=== PATIENT | male | born 1950 | race Two or more races ===

== ENCOUNTER 2025-06-09 15:53 | Emergency (ER) | payer MEDICAID, SELFPAY ==
[2025-06-09 16:06] VITALS: BP 119/73; PULSE 91; RESP 16; TEMP 36.8; O2SAT 95; BMI 28.0
--- NOTE | 2025-06-09 16:13 | XR_ITS ---
Examination: PA lateral chest 2 views FINDINGS: Upright PA and lateral chest 2 views Date and time: June 09, 2025, 1639 hours INDICATIONS: Shortness of breath dizziness weakness beginning one month ago. FINDINGS: Dense consolidation versus pulmonary mass in the right upper lobe, 4.3 cm, which may be cavitary Minor prominence left ventricle. No pulmonary edema. The osseous structures are intact IMPRESSION: Prominent parenchymal disease in the right upper lobe which may be cavitary Consider CT chest without intravenous contrast follow-up
--- NOTE | 2025-06-09 16:13 | EKG_ITS ---
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
--- NOTE | 2025-06-09 16:14 | PD.EDRME ---
Rapid Medical Screening Exam E Arrival date/time: 06/09/25 15:53 75-year-old male with a history of hypertension, hyperlipidemia presents to the emergency room with a chief complaint of shortness of breath, dizziness, weakness x 1 month. Patient states he was recently admitted in [place] for shortness of breath and was on oxygen. I have greeted and performed a focused initial assessment of this patient. A comprehensive ED assessment and evaluation of the patient, analysis of all test results, and completion of the medical decision making process will be conducted by additional ED providers. Chief Complaint: Dizziness Time Seen by Provider: 06/09/25 16:03 Vital signs: Vital Signs Temperature 98.2 F 06/09/25 16:06 Pulse Rate 91 06/09/25 16:06 Respiratory Rate 16 06/09/25 16:06 Blood Pressure 119/73 06/09/25 16:06 Pulse Oximetry (%) 95 06/09/25 16:06 Vital signs reviewed by provider: Yes
[2025-06-09 17:13] LABS: Basophils # (Auto) 0.0 Thou/mm3 (0.0-0.2); Basophils % (Auto) 0 % (0-2.5); Eosinophils # (Auto) 0.0 Thou/mm3 (0.0-0.5); Eosinophils % (Auto) 1 % (0-10); Hematocrit 35.0 % (41.0-53.0); Hemoglobin 12.0 g/dL (13.5-16.0); Immature Granulocytes Auto 0.20 Thou/mm3 (0.00-0.00); Lymphocytes # (Auto) 1.9 Thou/mm3 (1.0-4.8); Lymphocytes % (Auto) 33 % (10-50); Mean Corpuscular HGB Conc 34.3 g/dl (31.0-37.0); Mean Corpuscular Hemoglobin 32.7 pg (25.0-35.0); Mean Corpuscular Volume 95 fL (80-100); Monocytes # (Auto) 1.4 Thou/mm3 (0.0-0.8); Monocytes % (Auto) 25 % (0-12); Neutrophils # (Auto) 2.2 Thou/mm3 (1.8-7.7); Neutrophils % (Auto) 38 % (37-80); Nucleated Red Blood Cell # 0.02 Thou/mm3 (0.00-0.00); Nucleated Red Blood Cell % 0 /100 WBC (0); Platelet Count 213 Thou/mm3 (140-440); RDW Standard Deviation 59.5 fL (35.1-43.9); Red Blood Count 3.67 Miln/mm3 (4.50-5.90); White Blood Count 5.7 Thou/mm3 (3.8-10.6)
[2025-06-09 17:37] LABS: B-Type Natriuretic Peptide 60 pg/mL (0-100)
[2025-06-09 17:39] LABS: Alanine Aminotransferase 23 U/L (10-49); Albumin, Serum 4.3 gm/dL (3.4-4.8); Albumin/Globulin Ratio 1.8 (1.2-2.2); Alkaline Phosphatase 146 U/L (46-116); Anion Gap 13 (7-16); Aspartate Amino Transferase 20 U/L (0-34); BUN/Creatinine Ratio 8 Ratio (12-20); Bilirubin,Total 0.6 mg/dL (0.3-1.2); Blood Urea Nitrogen 9 mg/dL (9-23); Calcium 8.3 mg/dL (8.3-10.6); Calcium (Corrected) 8.3 mg/dL (8.5-10.1); Carbon Dioxide 27.5 mMol/L (20.0-31.0); Chloride 105 mMol/L (98-107); Creatinine (Component) 1.1 mg/dL (0.6-1.3); Estimated Creatinine Clearance 61.6 mL/min (>60); Globulin 2.4 gm/dL (2.3-3.5); Glucose 80 mg/dL (74-106); Osmolality,Calculated 286 (275-295); Potassium 4.4 mMol/L (3.4-5.1); Sodium 145 mMol/L (136-145); Total Protein 6.7 gm/dL (5.7-8.2); Troponin I < 0.020 ng/mL (0.0-0.045); eGFR > 60 See Note
[2025-06-09 17:52] LABS: INR 1.4 (0.9-1.3); Partial Thromboplastin Time 42.4 Seconds (22.0-36.0); Prothrombin Time 14.7 Seconds (9.0-12.2)
[2025-06-09 17:53] LABS: Collection Type, Urine Clean Catch; Squamous Epithelial Cell,Urine 0 /hpf (0-5)
[2025-06-09 18:00] LABS: Bilirubin,Urine Negative (Negative); Blood,Urine Negative (Negative); Clarity,Urine Clear (Clear/Hazy); Color,Urine Lt-Yellow (Lt Yel-Yel); Glucose, Urine Negative (Negative); Ketones,Urine Negative (Negative); Leukocyte Esterase,Urine Negative (Negative); Nitrite,Urine Negative (Negative); PH,Urine 6.5 (5.0-7.0); Protein,Urine Negative (Neg - Trace); RBC,Urine 1 /hpf (0-3); Specific Gravity,Urine 1.009 (1.001-1.035); Urobilinogen,Urine Negative mg/dL (0.0-1.0); WBC,Urine < 1 /hpf (0-5)
--- NOTE | 2025-06-09 19:08 | XR_ITS ---
Examination: CT thoracic spine, without contrast. 2-D sagittal reconstructions. 2-D coronal reconstructions. 3-D reconstructions. Date and time of exam:Indications: Onset of back pain today CTDI: vol (mGy):41.4 DLP: (mGycm):1539. Technique: Multiple 1.25 mm axial sections of the thoracic spine without intravenous contrast have been obtained. 2-D sagittal and coronal reconstructions have been obtained. 3-D reconstructions have been obtained. Low dose protocols were performed. One or more of the following dose reduction techniques were used; automated exposure control, adjustment of the mA and/or KV according to patient size, use of iterative reconstruction technique. Findings: Mild acute fracture T12 vertebral body, sagittal image 46, axial image 175 Reduction in height less than 10% Satisfactory alignment of this vertebral body [id number] diffuse thoracic disc narrowing IMPRESSION: Mild acute fracture T12 vertebral body with satisfactory alignment
--- NOTE | 2025-06-09 19:08 | XR_ITS ---
Examination: Abdomen sonogram, Limited Date and time of exam: June 09, 2025 1935 hours INDICATIONS: Right upper abdomen tenderness today Technique: Real-time limon scale transabdominal sonographic images of the upper abdomen obtained. Findings: 5 mm gallbladder polyp Negative for cholelithiasis, negative for cholecystitis Common bile duct 0.4 cm Pancreatic head 2.9 cm Liver 13.4 cm no focal liver lesions Normal hepatopedal portal venous flow Patent IVC IMPRESSION: 5 mm gallbladder polyp Normal common bile duct
--- NOTE | 2025-06-09 19:08 | XR_ITS ---
Examination: CT brain head without contrast. 2-D sagittal coronal reconstructions Date and time of exam:June 09, 2025, 1923 hours INDICATIONS: Dizziness headache today CTDI: vol (mGy):55.2 DLP: (mGycm):1087 Technique: Multiple CT axial sections of the brain have been obtained, 5 mm slice thickness. Contrast has not been administered. 2-D sagittal, coronal reconstructions have been obtained Low dose protocols were performed. One or more of the following dose reduction techniques were used; automated exposure control, adjustment of the mA and/or KV according to patient size, use of iterative reconstruction technique. Findings: No significant ventricular enlargement. Intra-axial or extra-axial hemorrhage density is not seen. No mass effect or midline shift Basal cisterns are not remarkable. Fourth ventricle is midline. Cranial vault intact. Impression: Negative for acute hemorrhage, mass effect or midline shift Advise clinical correlation and follow up accordingly
--- NOTE | 2025-06-09 19:08 | XR_ITS ---
Examination: CT chest, without intravenous contrast. CT abdomen, without intravenous contrast. CT pelvis, without intravenous contrast. 2-D sagittal and coronal reconstructions. 3-D reconstructions. Date and time of exam:June 09, 2025 1930 hours INDICATIONS: Generalized abdominal and chest pain shortness of breath one month CTDI vol (mgy) 11.5 DLP (MGycm)8 Technique: Multiple CT images, 3.0 mm slice thickness, obtained chest, abdomen, pelvis, with the high-resolution 64 slice scanner.. Sagittal and coronal 2-D reconstructions are obtained. 3-D reconstructions Low dose protocols were performed. One or more of the following dose reduction techniques were used; automated exposure control, adjustment of the mA and/or KV according to patient size, use of iterative reconstruction technique. Findings: No thoracic aortic aneurysmal dilatation Pulmonary artery segments are not enlarged Partially cavitary pulmonary mass with spiculated margins in the right upper lobe, 4.1 x 4.2 cm 2 mm pulmonary nodule left upper lobe 14 mm pulmonary nodule left lower lobe No pulmonary edema No focal liver or splenic lesions No gallstones No pancreatic mass No hydronephrosis Aorta intact No pericecal inflammatory change Urinary bladder are intact Fat-containing inguinal hernias Prominent osteopenia Please see the CT lumbar thoracic spine studies indicating mild fracture L1 and T12 vertebral bodies with satisfactory alignment IMPRESSION: Partially cavitary pulmonary mass with spiculated margins of the right upper lobe, 4.1 x 4.2 cm, I has on the differential list his lung carcinoma Additional pulmonary nodules as above No pulmonary edema or pneumonia No acute process in the abdomen or pelvis Please see the CT lumbar spine thoracic spine reports
--- NOTE | 2025-06-09 19:08 | XR_ITS ---
Examination: CT lumbar spine, without contrast. 2-D sagittal reconstructions. 2-D coronal reconstructions. 3-D reconstructions. Date and time of exam:June 09, 2025 1927 hours INDICATIONS: Onset severe lower back pain today radiating to legs CTDI: vol (mGy):39.9 DLP: (mGycm):1532 Technique: Multiple 1.25 mm axial sections of the lumbar spine without intravenous contrast have been obtained. 2-D sagittal and coronal reconstructions have been obtained. 3-D reconstructions have been obtained. Low dose protocols were performed. One or more of the following dose reduction techniques were used; automated exposure control, adjustment of the mA and/or KV according to patient size, use of iterative reconstruction technique. Findings: Satisfactory alignment lumbar vertebral bodies Mild acute fracture L1 vertebral body, depression superior endplate, sagittal image 53, axial image 50 No retropulsion of this vertebral body Advanced degenerative disc disease L4-5, L5-S1 No spondylolisthesis IMPRESSION: Mild acute fracture L1 vertebral body with satisfactory alignment Advanced degenerative disc disease L4-L5, L5-S1
--- NOTE | 2025-06-09 19:14 | PD.EDDIZZY ---
ED Dizzyness RME/HPI General Chief Complaint: Dizziness Stated Complaint: low blood pressure, dizziness Time Seen by Provider: 06/09/25 16:03 Arrival date/time: 06/09/25 15:53 RME / HPI RME / HPI Narrative: 06/09/25 15:53 75-year-old male with a history of hypertension, hyperlipidemia presents to the emergency room with a chief complaint of shortness of breath, dizziness, weakness x 1 month. Patient states he was recently admitted in [place] for shortness of breath and was on oxygen. I have greeted and performed a focused initial assessment of this patient. A comprehensive ED assessment and evaluation of the patient, analysis of all test results, and completion of the medical decision making process will be conducted by additional ED providers. This section includes all my notes and documentations, including HPI, PE, and ED course. Tomy Woods MD HPI: 75 y/o male with Hx of HTN presents with dizziness, generalized weakness, headache, nausea, possible subjective fever fever, back pain, and sweats x several weeks. Denies vomiting, abdominal and chest pain. No other complaints. ROS: All negative except as documented in HPI. Physical Exam: General: Alert and oriented. No acute distress when remaining still. Eyes: Conjunctivae and lids clear. ENT: No nasal congestion. Neck: Supple. Heart: RRR. Lungs: No respiratory distress. Good air movement. No rhonchi, wheezing, rales. Abdomen: Soft and nontender. Normal bowel sounds. No distension. No rebound or guarding. Back: No CVA tenderness. Skin: Warm and dry. Neuro: Alert and oriented X 3. Cranial nerves II to XII grossly normal. No peripheral motor deficits. I reviewed all diagnostic test results: My review of the Head/Brain CT report is: NAD. My review of the Chest/Abdomen/Pelvis CT report is: Partially cavitary pulmonary mass 4.1 x 4.2 cm. My review of the L-Spine CT report is: Mild acute fracture L1 vertebral body with satisfactory alignment. Advanced degenerative disc disease L4-L5, L5-S1. My review of the T-Spine CT report is: Mild acute fracture T12 vertebral body with satisfactory alignment. My review of the Gall Bladder US report is: 5 mm gallbladder polyp. Normal common bile duct. Blood tests and urine tests unremarkable except Mg 1.3. Covid/Influenza: Negative. At this point, diagnoses include: Hypomagnesia, L1 vertebral fracture, T2 vertebral fracture, Lumbar degenerative disc disease, Mass of upper lobe of right lung. Treatment here included: Magnesium oxide 400 mg and acetaminophen w/ Codeine 300-30. Recommended outpatient management. Based on my best medical judgment, made decision no further evaluation or treatment indicated at this time. Patient understands and agrees to the discharge instructions customized and printed, see below. Discharge Instructions from Dr. Woods printed for you: 1. After extensive evaluation, your main diagnosis is right lung mass. It may be cancer. We will not know without further investigation. 2. Other diagnoses include mild lumbar fracture (L1) and thoracic fracture (T2) and degenerative disc disease. See attached handouts. They may be causing back pain. 3. Your magnesium level is dangerously low. Take magnesium pills as prescribed. Increase food rich in magnesium. Such as green and leafy vegetables and peanuts and almonds and cashews. 4. Most importantly, see a private doctor outside the ER on 06/12/2025 for recheck and further care. Ask to review all test results and official radiology reports, to make sure you receive all necessary follow-ups and monitoring, including the repeat magnesium level. Ask for help investigating your right upper lung mass. You will need more care not available in the ER. Such as referrals to specialists. 5. Seek immediate medical care with worsening or with any concerns. Tomy Woods MD Related Data Home Medications ?Medication ?Instructions ?Recorded ?Confirmed allopurinol 300 mg tablet 300 mg PO QDAY 05/15/23 05/15/23 aspirin 81 mg capsule 81 mg PO QDAY 05/15/23 05/18/23 celecoxib 200 mg capsule 200 mg PO QDAY 05/15/23 05/15/23 fluoxetine 10 mg tablet 10 mg PO QDAY 05/15/23 05/15/23 gabapentin 300 mg capsule 300 mg PO BID 05/15/23 05/15/23 hydrochlorothiazide 25 mg tablet 25 mg PO BID 05/15/23 05/15/23 loratadine 10 mg capsule 10 mg PO QDAY 05/15/23 05/15/23 losartan 50 mg tablet 50 mg PO BID 05/15/23 05/18/23 omeprazole 20 mg capsule,delayed 20 mg PO QDAY 05/15/23 05/15/23 release pravastatin 10 mg tablet 10 mg PO QDAY 05/15/23 05/15/23 Previous Rx's ?Medication ?Instructions ?Recorded acetaminophen 300 mg-codeine 30 mg 2 tab PO Q8H PRN pain #20 tabs 06/09/25 tablet magnesium oxide 400 mg PO BID #60 tabs 06/09/25 Allergies Allergy/AdvReac Type Severity Reaction Status Date / Time No Known Allergies Allergy Verified 05/18/23 10:29 Review of Systems Review of Systems Systems Reviewed: All systems reviewed, normal except as documented Past Medical History Past Medical History CARDIAC: Positive Cardiac Disorders, Hypercholesterolemia and Hypertension GASTROINTESTINAL: Positive Gastrointestinal Disorders, Hemorrhoids and Obesity GENITOURINARY: Positive Genitourinary Disorders and Benign Prostatic Hyperplasia MUSCULOSKELETAL: Positive Musculoskeletal Disorders, Arthritis, Gout and Degenerative Joint Disease ENT: Positive Cataracts (sonal) PSYCHO/SOCIAL: Positive Depression Family History FAMILY HISTORY: Positive Family Surgery Surgical History SURGICAL: Positive Transurethral Resection (x3) Social History SMOKING STATUS: Former smoker ED Exam Narrative Physical exam: Refer to HPI Course Course Course Narrative: CXR is ordered for determining the etiology of shortness of breath. Quality Measures none Orders Category Date Time Status Bedside COVID-19 Antigen Test NOW Care 06/09/25 19:07 Completed Bedside Influenza A&B Antigen Test NOW Care 06/09/25 19:07 Completed EKG (ED ONLY) *Do not use* NOW Care 06/09/25 16:[address] chest abdomen pelvis wo Stat Exams 06/09/25 19:[address] head/brain wo con Stat Exams 06/09/25 19:[address] lumbar spine wo con Stat Exams 06/09/25 19:[address] thoracic spine wo con Stat Exams 06/09/25 19:08 Completed EKG (ED Only) Stat Exams 06/09/25 16:13 Draft US gall bladder Stat Exams 06/09/25 19:08 Completed XR chest 2V Stat Exams 06/09/25 16:13 Completed Amylase Stat Lab 06/09/25 19:53 Completed B-Type Natriuretic Peptide Stat Lab 06/09/25 16:48 Completed Beta Hydroxybutyrate Stat Lab 06/09/25 19:53 Completed Bilirubin,Direct Stat Lab 06/09/25 19:53 Completed CBC Stat Lab 06/09/25 16:48 Completed CRP [C-Reactive Protein] Stat Lab 06/09/25 19:53 Completed Cocci Serology IgM with reflex to IgG [Cocci Serology, Lab 06/09/25 16:48 Received Unk History] Stat Comprehensive Metabolic Panel Stat Lab 06/09/25 16:48 Completed Free T4 (Free Thyroxine) Stat Lab 06/09/25 19:53 Completed Lactate (Lactic Acid) Stat Lab 06/09/25 19:53 Completed Lipase Stat Lab 06/09/25 19:53 Completed Magnesium Stat Lab 06/09/25 19:53 Completed Partial Thromboplastin Time Stat Lab 06/09/25 16:48 Completed Procalcitonin Stat Lab 06/09/25 19:53 Completed Prothrombin Time with INR Stat Lab 06/09/25 16:48 Completed TSH [Thyroid Stimulating Hormone] Stat Lab 06/09/25 19:53 Completed Troponin I Stat Lab 06/09/25 16:48 Completed Urinalysis Stat Lab 06/09/25 17:46 Completed VBG [Venous Blood Gas] Stat Lab 06/09/25 19:53 Completed ACETAMINOPHEN w/COD 300-30 [Tylenol w/Cod #3] Med 06/09/25 22:59 Discontinued 2 tab PO X1 ONE Magnesium Oxide [Mag-Ox 400] Med 06/09/25 22:28 Discontinued 400 mg PO X1 ONE Magnesium Sulf 50% Inj (gm) Med 06/09/25 22:26 Discontinued 2 gm IM X1 ONE Vital Signs Vital signs: Vital Signs Temperature 98.2 F 06/09/25 16:06 Pulse Rate 91 06/09/25 16:06 Respiratory Rate 16 06/09/25 16:06 Blood Pressure 119/73 06/09/25 16:06 Pulse Oximetry (%) 95 06/09/25 16:06 Dizziness MDM Narrative MDM Narrative:: Scribe Attestation: Amy Lee, am scribing for and in the presence of Dr. Woods. Provider Notation: Although this document has been carefully reviewed, there may still be some phonetic and other typographical errors.? These errors are purely grammatical due to imperfections in the software program and should not be construed in any way to? compromise the substance of the patient's medical care during this visit. 75 y/o male with Hx of HTN presents with dizziness, generalized weakness, headache, nausea, possible subjective fever fever, back pain, and sweats x several weeks. Denies vomiting, abdominal and chest pain. No other complaints. Patient data External records reviewed:: [facility] previous records (No prior ED records available for review.) Clinical information provided by:: patient and family (Son) Social determinants that could affect healthcare access:: none Patient has the following chronic illnesses:: Hypercholesterolemia, Hypertension, Hemorrhoids, Obesity, Benign Prostatic Hyperplasia, Arthritis, Gout, Degenerative Joint Disease, Cataracts, Depression How is presenting disease/condition affected by chronic disease/condition?: exacerbated by Evaluation data The following diagnostics were reviewed and interpreted by me:: lab results, radiology exam(s) and EKG tracing(s) Lab and/or radiology exams considered but not ordered:: None Interpretation Summary: My review of the Head/Brain CT report is: NAD. My review of the Chest/Abdomen/Pelvis CT report is: Partially cavitary pulmonary mass 4.1 x 4.2 cm. My review of the L-Spine CT report is: Mild acute fracture L1 vertebral body with satisfactory alignment. Advanced degenerative disc disease L4-L5, L5-S1. My review of the T-Spine CT report is: Mild acute fracture T12 vertebral body with satisfactory alignment. My review of the Gall Bladder US report is: 5 mm gallbladder polyp. Normal common bile duct. Blood tests and urine tests unremarkable except Mg 1.3. Covid/Influenza: Negative. Medications / Prescriptions Medications or Prescriptions considered but not ordered:: None Medication administrations:: Medication Administration History Discontinued Medications Acetaminophen/Codeine Phosphate (Acetaminophen W/Cod 300-30 Tablet) 2 tab PO X1 ONE Stop: 06/09/25 23:00 Last Admin: 06/09/25 23:08 Dose: 2 tab Documented By: OA Magnesium Oxide (Magnesium Oxide 400 Mg Tablet) 400 mg PO X1 ONE Stop: 06/09/25 22:29 Last Admin: 06/09/25 23:08 Dose: 400 mg Documented By: OA Magnesium Sulfate (Magnesium Sulf Inj 0.5 Gm/Ml Vial 2 Ml) 2 gm IM X1 ONE Stop: 06/09/25 22:27 Last Admin: 06/09/25 23:10 Dose: Not Given Documented By: OA Non-Admin Reason: Discontinued Magnesium oxide 400 mg and Acetaminophen w/ Codeine 300-30. Consultations Consultation(s) initiated? (list below): No Diagnosis Dizziness Differential Diagnosis: adverse reaction to drug, benign paroxysmal positional vertigo, orthostatic hypotension, vertebral basilar insufficiency, cerebrovascular accident, acute vestibular neuronitis and transient cerebral ischemia Most likely diagnosis given after review of the tests above:: Hypomagnesia, L1 vertebral fracture, T2 vertebral fracture, Lumbar degenerative disc disease, Mass of upper lobe of right lung. Admission Indicated Admission indicated?: not indicated Explain why admission is indicated or not indicated:: With no condition needing emergent intervention, there was no indication for admission. Admission Request Was there a request for admission?: No Disposition Plan Disposition Plan: Discharge Discharge Attestation Discharge Attestation: The patient and all family members were given an opportunity to ask questions and understood the discharge instructions. Discharge instructions specifically effects, indications for sooner follow up or return to the emergency department, and the expected course of current diagnosis. Patient condition: Stable Discharge Plan Plan Patient Disposition: HOME (Self Care) Prescriptions/Referrals Prescriptions/Med Rec: New magnesium oxide 400 mg magnesium tablet 400 mg PO BID Qty: 60 3RF acetaminophen-codeine 300-30 mg tablet 2 tab PO Q8H MDD 6 PRN (Reason: pain) Qty: 20 0RF No Action losartan 50 mg Tablet 50 mg PO BID celecoxib 200 mg Capsule 200 mg PO QDAY pravastatin 10 mg Tablet 10 mg PO QDAY gabapentin 300 mg Capsule 300 mg PO BID omeprazole 20 mg Capsule,Delayed Release(Dr/Ec) 20 mg PO QDAY allopurinol 300 mg Tablet 300 mg PO QDAY hydrochlorothiazide 25 mg Tablet 25 mg PO BID loratadine 10 mg Capsule 10 mg PO QDAY aspirin 81 mg Capsule 81 mg PO QDAY fluoxetine 10 mg Tablet 10 mg PO QDAY Referrals: Pako Tirado MD [Primary Care Provider] - In 1 week Problem List Clinical Impression: Mass of upper lobe of right lung, T2 vertebral fracture, L1 vertebral fracture, Lumbar degenerative disc disease, Hypomagnesemia Patient/Caregiver Discharge Instructions Discharge Activity: activity as tolerated Education Materials: Magnesium (Blood), ED Fracture, Vertebral Compression, ED Degenerative Disk Disease, ED Tumor, Uncertain Cause Additional Instructions: Discharge Instructions from Dr. Woods printed for you: 1. After extensive evaluation, your main diagnosis is right lung mass. It may be cancer. We will not know without further investigation. 2. Other diagnoses include mild lumbar fracture (L1) and thoracic fracture (T2) and degenerative disc disease. See attached handouts. They may be causing back pain. 3. Your magnesium level is dangerously low. Take magnesium pills as prescribed. Increase food rich in magnesium. Such as green and leafy vegetables and peanuts and almonds and cashews. 4. Most importantly, see a private doctor outside the ER on 06/12/2025 for recheck and further care. Ask to review all test results and official radiology reports, to make sure you receive all necessary follow-ups and monitoring, including the repeat magnesium level. Ask for help investigating your right upper lung mass. You will need more care not available in the ER. Such as referrals to specialists. 5. Seek immediate medical care with worsening or with any concerns. Instrucciones de nusrat del Dr. Woods impresas para usted: 1. Tras jamie evaluaci?n exhaustiva, cox diagn?stico principal es jamie masa en el pulm?n derecho. Podr?a ser c?ncer. No lo sabremos sin m?s investigaci?n. 2. Otros diagn?sticos incluyen fractura lumbar leve (L1), fractura tor?cica (T2) y enfermedad degenerativa del disco. Consulte los folletos adjuntos. Podr?an estar causando dolor de espalda. 3. Cox nivel de magnesio es peligrosamente bajo. [place] las pastillas de magnesio seg?n lo prescrito. Aumente el consumo de alimentos ricos en magnesio, yunior verduras de hoja nithya, cacahuetes, almendras y anacardos. 4. Lo m?s importante es que consulte con un m?dico privado fuera de urgencias el 12/06/2025 para jamie nueva revisi?n y atenci?n adicional. Solicite la revisi?n de todos los resultados de las pruebas y los informes radiol?gicos oficiales para asegurarse de recibir todos los seguimientos y la monitorizaci?n necesarios, incluyendo la repetici?n del nivel de magnesio. Solicite ayuda para investigar cox masa en el pulm?n superior derecho. Necesitar? atenci?n adicional que no est? disponible en urgencias. Yunior derivaciones a especialistas. 5. Busque atenci?n m?dica inmediata si presenta empeoramiento o cualquier inquietud. Print Language: Sami Stand Alone Forms: Lisha Award Info., Patient Portal Info Letter
[2025-06-09 20:02] LABS: Lactate (Lactic Acid) 1.4 mMol/L (0.4-2.0)
[2025-06-09 20:03] LABS: Base Excess, Venous 3 (-3-3); Beta Hydroxybutyrate 0.1 mmol/L (<0.6); O2 Saturation, Venous 50 % (96-97); PCO2, Venous 44 mmHg (36-56); PO2, Venous 28 mmHg (15-58); pH, Venous 7.41 (7.33-7.66)
[2025-06-09 22:08] LABS: Bilirubin,Direct 0.2 mg/dL (0.0-0.3); Free T4 (Free Thyroxine) 1.14 ng/dL (0.89-1.76); Lipase 55 U/L (12-53); Magnesium 1.3 mg/dL (1.6-2.6); Procalcitonin 0.14 ng/ml (0.0-0.49); Thyroid Stimulating Hormone 5.01 uIU/mL (0.55-4.78)
[2025-06-09 22:21] LABS: Amylase 79 U/L (30-118); C-Reactive Protein 1.4 mg/dL (0.0-0.9)
[2025-06-09] MEDS: MAGNESIUM OXIDE 400 MG TABLET PO (23:08)
[2025-06-09] MEDS: ACETAMINOPHEN w/COD 300-30 TABLET 2 TAB PO (23:08)
[2025-06-09 23:13] VITALS: BP 122/78; PULSE 78
[2025-06-10 14:21] LABS: Cocci Serology, IgM Negative (Negative)
[2025-06-12 13:59] LABS: Cocci Serology, IgG Negative (Negative)
== END 2025-06-09 23:14 | disposition home or self-care (01) ==
PROVIDERS: Nurse Practitioner Family; Emergency Provider Emergency Medicine; PCP Family Medicine
DX: R91.8 Other nonspecific abnormal finding of lung field (principal); M51.369 Other intervertebral disc degeneration, lumbar region without mention of lumbar back pain or lower extremity pain; K82.4 Cholesterolosis of gallbladder; S22.029A Unspecified fracture of second thoracic vertebra, initial encounter for closed fracture; S22.089A Unspecified fracture of T11-T12 vertebra, initial encounter for closed fracture; X58.XXXA Exposure to other specified factors, initial encounter; S32.019A Unspecified fracture of first lumbar vertebra, initial encounter for closed fracture; E83.42 Hypomagnesemia
CPT/HCPCS: 36415; 70450; 71046; 71250; 72128; 72131; 74176; 76705; 80053; 81001; 82010; 82150; 82248; 82803; 83605; 83690; 83735; 83880; 84145; 84439; 84443; 84484; 85025; 85610; 85652; 85730; 86140; 86331; 86635; 93005; 99284; A9270

== ENCOUNTER → 2025-06-28 | Outpatient (CLI) | payer MEDICAID, SELFPAY ==
[2025-06-26 13:43] VITALS: BMI 27.4
[2025-06-27 11:48] LABS: Basophils # (Auto) 0.0 Thou/mm3 (0.0-0.2); Basophils % (Auto) 0 % (0-2.5); Eosinophils # (Auto) 0.1 Thou/mm3 (0.0-0.5); Eosinophils % (Auto) 1 % (0-10); Hematocrit 36.4 % (41.0-53.0); Hemoglobin 12.2 g/dL (13.5-16.0); Immature Granulocytes Auto 0.31 Thou/mm3 (0.00-0.00); Lymphocytes # (Auto) 1.6 Thou/mm3 (1.0-4.8); Lymphocytes % (Auto) 28 % (10-50); Mean Corpuscular HGB Conc 33.5 g/dl (31.0-37.0); Mean Corpuscular Hemoglobin 33.0 pg (25.0-35.0); Mean Corpuscular Volume 98 fL (80-100); Monocytes # (Auto) 1.2 Thou/mm3 (0.0-0.8); Monocytes % (Auto) 21 % (0-12); Neutrophils # (Auto) 2.5 Thou/mm3 (1.8-7.7); Neutrophils % (Auto) 44 % (37-80); Nucleated Red Blood Cell # 0.00 Thou/mm3 (0.00-0.00); Nucleated Red Blood Cell % 0 /100 WBC (0); Platelet Count 194 Thou/mm3 (140-440); RDW Standard Deviation 57.3 fL (35.1-43.9); Red Blood Count 3.70 Miln/mm3 (4.50-5.90); White Blood Count 5.7 Thou/mm3 (3.8-10.6)
[2025-06-27 11:55] LABS: INR 1.2 (0.9-1.3); Partial Thromboplastin Time 34.6 Seconds (22.0-36.0); Prothrombin Time 12.6 Seconds (9.0-12.2)
--- NOTE | 2025-06-28 09:34 | PC.NURSE ---
0923 patient taking xarelto at home, last dose yesterday 06/27/2025, Dr. Rubin called and made aware, procedure will be cancelled for today and scheduled for next week. Patient and family educated to stop xarelto for procedure. Both patient and family verbalize understanding.
== END | disposition home or self-care (01) ==
LOC: SIRX 09:08
PROVIDERS: Radiology Diagnostic Radiology; PCP Family Medicine; Referring Provider Nurse Practitioner Family; Visit Provider Nurse Practitioner Family
DX: Z53.8 Procedure and treatment not carried out for other reasons (principal); Z01.812 Encounter for preprocedural laboratory examination
CPT/HCPCS: 36415; 85025; 85610; 85730

== ENCOUNTER 2025-07-03 07:36 | Outpatient (CLI) | payer MEDICAID, SELFPAY ==
[2025-06-29 11:50] VITALS: BMI 25.3
[2025-06-30 14:27] LABS: Basophils # (Auto) 0.0 Thou/mm3 (0.0-0.2); Basophils % (Auto) 0 % (0-2.5); Eosinophils # (Auto) 0.1 Thou/mm3 (0.0-0.5); Eosinophils % (Auto) 1 % (0-10); Hematocrit 34.0 % (41.0-53.0); Hemoglobin 11.3 g/dL (13.5-16.0); Immature Granulocytes Auto 0.17 Thou/mm3 (0.00-0.00); Lymphocytes # (Auto) 1.6 Thou/mm3 (1.0-4.8); Lymphocytes % (Auto) 30 % (10-50); Mean Corpuscular HGB Conc 33.2 g/dl (31.0-37.0); Mean Corpuscular Hemoglobin 32.8 pg (25.0-35.0); Mean Corpuscular Volume 99 fL (80-100); Monocytes # (Auto) 1.2 Thou/mm3 (0.0-0.8); Monocytes % (Auto) 24 % (0-12); Neutrophils # (Auto) 2.2 Thou/mm3 (1.8-7.7); Neutrophils % (Auto) 41 % (37-80); Nucleated Red Blood Cell # 0.00 Thou/mm3 (0.00-0.00); Nucleated Red Blood Cell % 0 /100 WBC (0); Platelet Count 185 Thou/mm3 (140-440); RDW Standard Deviation 56.8 fL (35.1-43.9); Red Blood Count 3.45 Miln/mm3 (4.50-5.90); White Blood Count 5.2 Thou/mm3 (3.8-10.6)
[2025-06-30 14:52] LABS: INR 1.1 (0.9-1.3); Partial Thromboplastin Time 28.9 Seconds (22.0-36.0); Prothrombin Time 11.7 Seconds (9.0-12.2)
[2025-07-03] VITALS (9 sets, daily range): BP systolic 113–142; BP diastolic 67–83; PULSE 67–82; RESP 15–23; TEMP 36.7–36.8; O2SAT 94–98
--- NOTE | 2025-07-03 08:30 | XR_ITS ---
Examination: CT-guided percutaneous biopsy pulmonary mass right upper lobe CT chest without intravenous contrast Date and time of procedure: July 03, 2025 0909 hours INDICATIONS: Chest pain June 09, 2025 spiculated cavitary pulmonary mass right upper lobe 4.1 x 4.2 cm Informed consent provided. A timeout was completed verifying correct patient, procedure, site and positioning. Technique: Axial 3 mm sections were obtained for localization of the pulmonary mass right upper lobe Appropriate area is marked. The patient's site was prepped and draped in sterile fashion Maximal sterile barrier technique utilized, including hand hygiene Local anesthesia was obtained with 1% lidocaine. Low dose protocols were performed. One or more of the following dose reduction techniques were used; automated exposure control, adjustment of the mA and/or KV according to patient size, use of iterative reconstruction technique. Utilizing CT fluoroscopic guidance for core biopsies obtained of the pulmonary mass, one biopsy placed in culture and sensitivity medium and 3 in preservative Patient appears in stable condition during this procedure. At completion of the procedure, the patient is in satisfactory condition. Estimated blood loss 2 cc Complete pathology culture and sensitivity report to follow. Impression: Successful CT-guided percutaneous biopsy pulmonary mass right upper
[2025-07-03] MEDS: SODIUM CHLORIDE 0.9% 250 ML 250 ML 50 ML IV (09:16)
[2025-07-03] MEDS: fentaNYL CIT INJ 50 mCg/ML AMP 2ML 75 MCG IV (09:35)
--- NOTE | 2025-07-03 10:01 | XR_ITS ---
Examination: AP chest single view Technique one AP portable upright chest single view Date and time: July 03, 2025 1013 hours INDICATIONS: Post biopsy pulmonary mass right upper lobe FINDINGS: Minimal right apical lateral pneumothorax, less than 5% Pulmonary mass right upper lobe IMPRESSION: Minimal right apical lateral pneumothorax, less than 5%
--- NOTE | 2025-07-03 11:00 | XR_ITS ---
Examination: AP chest single view TECHNIQUE: Portable sitting AP chest single view Date and time: July 03, 2025 1107 hours INDICATIONS: Post biopsy pulmonary mass right upper lobe today. FINDINGS: On the current study no definite pneumothorax Pulmonary mass right upper lobe Mild prominence left ventricle IMPRESSION: On the current study no definite pneumothorax
== END 2025-07-03 11:34 | disposition home or self-care (01) ==
PROVIDERS: Radiology Diagnostic Radiology; PCP Nurse Practitioner Family; Referring Provider Nurse Practitioner Family; Visit Provider Nurse Practitioner Family
DX: J18.9 Pneumonia, unspecified organism (principal); Z01.812 Encounter for preprocedural laboratory examination
CPT/HCPCS: 32408; 36415; 77012; 85025; 85610; 85730; 87070; 87075; 87205; J3010; J7050

== ENCOUNTER 2025-09-09 14:31 | Emergency (ER) | payer MEDICAID, SELFPAY ==
[2025-09-09 14:34] VITALS: BMI 28.8
[2025-09-09 14:50] VITALS: BP 127/80; PULSE 84; RESP 18; TEMP 37.2; O2SAT 97
[2025-09-09] MEDS: IBUPROFEN TAB 400 MG TABLET 800 MG PO (16:28)
[2025-09-09] MEDS: ACETAMINOPHEN 500 MG TABLET 1000 MG PO (16:28)
--- NOTE | 2025-09-09 17:18 | EDNOTE_ITS ---
<Statement entered by Lissa Armenta MD - 09/24/25 14:17> As co-signing physician, I was present and available for consult prn. I concur with the plan and care as documented by the midlevel provider. ED Headache RME/HPI General Chief Complaint: Headache Stated Complaint: HEADACHE & CAN'T HEAR ON MY L EAR X1 MONTH Time Seen by Provider: 09/09/25 14:41 Arrival date/time: 09/09/25 14:31 This is a 75-year-old male that comes in with complaints of chronic left ear pain and headache. Patient has been seen his primary doctor for over a month now for hearing loss, left ear infection, left ear pain. Patient has been on 3 different oral antibiotics and was on antibiotic drops Ciprodex. Patient is supposed to be sent to a specialist for his problem. Patient denies any other symptoms such as fever or chills. Patient has not been taking any medications for pain. Related Data Home Medications ?Medication ?Instructions ?Recorded ?Confirmed omeprazole 20 mg capsule,delayed 20 mg PO QDAY 3 07/03/25 release acetaminophen 500 mg oral powder 500 mg PO Q6H PRN nacho n 06/28/25 07/03/25 packet (Tylenol Extra Strength) furosemide 40 mg tablet 40 mg PO QDAY 06/28/2507/03 rivaroxaban 20 mg tablet (Xarelto) See Rx Instructions G-tube QDAY 06/28/25 07/03/25 Held on 07/03/25. Instructions: Resume on 07/05/25. Continue on 07/05/25 Previous Rx's ?Medication ?Instructions ?Recorded magnesium oxide 400 mg PO BID #60 tabs 06/09 acetaminophen 500 mg tablet 1,000 mg (2 x 500 mg) PO Q 6H PRN 09/09/25 pain #30 tabs ibuprofen 800 mg tablet 800 mg PO Q6H PRN pain #14 t abs 09/09/25 Allergies Allergy/AdvReac Type Severity Reaction Status Date / Time No Known Allergies Allergy Verified 09/09/25 14:46 Review of Systems Review of Systems Systems Reviewed: All systems reviewed, normal except as documented Past Medical History Past Medical History CARDIAC: Positive Cardiac Disorders, Hypercholesterolemia and Hypertension GASTROINTESTINAL: Positive Gastrointestinal Disorders, Hemorrhoids and Obesity GENITOURINARY: Positive Genitourinary Disorders and Benign Prostatic Hyperplasia MUSCULOSKELETAL: Positive Musculoskeletal Disorders, Arthritis, Gout and Dege nerative Joint Disease ENT: Positive Cataracts (sonal) PSYCHO/SOCIAL: Positive Depression Family History FAMILY HISTORY: Positive Family Surgery Surgical History SURGICAL: Positive Transurethral Resection (x3) Social History SMOKING STATUS: Former smoker ED Exam Narrative Physical exam: VITAL SIGNS: Reviewed. GENERAL APPEARANCE: Alert and interactive, follows commands, no acute distress HEAD AND FACE: Non-traumatic. ENT: PERRL, conjuctiva pink and clear, eyelid no trauma, Mucous membrane moist. mild edema, left TM has debris's, poor landmarks no erythema NECK: Supple, nontender, no nuchal rigidity. CHEST: No tenderness, no crepitus, no paradoxical movement, no retractions. LUNGS: breathing even and unlabored HEART: Regular rate, cap refill less than 2 seconds ABDOMEN: Soft, nondistended, no guarding, nontender, no rebound, no masses, NEUROLOGICAL: Gross motor function intact sensory function intact, Appropriate for age. MUSCULOSKELETAL: low back nontender, full range of motion. no midline tenderness, no meningismus, no step offs EXTREMITIES: No redness no swelling no skin breakdown on bilateral foot and leg. Distal neurovascular status intact bilateral foot SKIN: Color pink, dry Course Quality Measures none Orders Category Date Time Status Acetaminophen Tab [Tylenol ES Tab] Med 09/09/25 16:18 Discontinued 1,000 mg PO X1 ONE Ibuprofen Tab [Motrin Tab] Med 09/09/25 16:18 Discontinued 800 mg PO X1 ONE Vital Signs Vital signs: Vital Signs Temperature 99 F 09/09/25 14:50 Pulse Rate 84 09/09/25 14:50 Respiratory Rate 18 09/09/25 14:50 Blood Pressure 127/80 09/09/25 14:50 Pulse Oximetry (%) 97 09/09/25 14:50 Oxygen Delivery Method Room Air 09/09/25 14:50 Headache MDM Narrative MDM Narrative:: I spoke to patient at length. Patient's daughter at bedside. Patient has been on multiple antibiotics already he is also been on antibiotic drops which was Ciprodex. Putting him on another antibiotic at this time does not seems appropriate. Patient has an appointment scheduled on September 14 already. Patient is being referred to a specialist for his left ear problems. Ear does not appear infected. Patient has not been taking any medication for pain. Today I gave patient Tylenol ibuprofen. Patient states he feels better. I talked to patient because there was a question of whether or not he was taking Xarelto or not. Patient states he is no longer taking this medication. I did prescribe him ibuprofen and Tylenol. I gave him a piece of paper with blood thinners on him and I told him if he is taking any of the blood thinner such as Xarelto, Eliquis, Pradaxa, warfarin to not take the ibuprofen. Patient verbalized understanding. Dragon dictation: Although this document has been carefully reviewed, there may still be some phonetic and other typographical errors. These errors are purely grammatical due to imperfections in the software program and should not be construed in any way to compromise the substance of the patient's medical care during this visit. Patient data External records reviewed:: [facility] previous records Clinical information provided by:: patient Social determinants that could affect healthcare access:: none Patient has the following chronic illnesses:: None How is presenting disease/condition affected by chronic disease/condition?: no chronic disease Evaluation data The following diagnostics were reviewed and interpreted by me:: other (specify) (None) Lab and/or radiology exams considered but not ordered:: None Interpretation Summary: See note Medications / Prescriptions Medications or Prescriptions considered but not ordered:: None Medication administrations:: Medication Administration History Discontinued Medications Acetaminophen (Acetaminophen 500 Mg Tablet) 1,000 mg PO X1 ONE Stop: 09/09/25 16:19 Last Admin: 09/09/25 16:28 Dose: 1,000 mg Documented By: OA Ibuprofen (Ibuprofen Tab 400 Mg Tablet) 800 mg PO X1 ONE Stop: 09/09/25 16:19 Last Admin: 09/09/25 16:28 Dose: 800 mg Documented By: OA See [facility] Consultations Consultation(s) initiated? (list below): No Diagnosis Differential diagnosis headache: tension headache and other (Otitis media otitis externa) Most likely diagnosis given after review of the tests above:: Headache, chronic ear pain Admission Indicated Admission indicated?: not indicated Admission Request Was there a request for admission?: No Disposition Plan Disposition Plan: Discharge Discharge Attestation Discharge Attestation: The patient and all family members were given an opportunity to ask questions and understood the discharge instructions. Discharge instructions specifically effects, indications for sooner follow up or return to the emergency department, and the expected course of current diagnosis. Patient condition: Stable Discharge Plan Plan Patient Disposition: HOME (Self Care) Patient condition on transfer: Stable Prescriptions/Referrals Prescriptions/Med Rec: New ibuprofen 800 mg tablet 800 mg PO Q6H PRN (Reason: pain) Qty: 14 0RF acetaminophen 500 mg tablet 1,000 mg PO Q6H PRN (Reason: pain) Qty: 30 0RF No Action omeprazole 20 mg Capsule,Delayed Release(Dr/Ec) 20 mg PO QDAY magnesium oxide 400 mg magnesium tablet 400 mg PO BID Qty: 60 3RF Xarelto 20 mg tablet See Rx Instructions G-tube QDAY Rx Instructions: 10mg (1/2 tab) daily Tylenol Extra Strength 500 mg powder in packet 500 mg PO Q6H PRN (Reason: pain) furosemide 40 mg tablet 40 mg PO QDAY Referrals: No Primary/Family,Physician [Primary Care Provider] - In 1 week Problem List Clinical Impression: Headache, Chronic ear pain Patient/Caregiver Discharge Instructions Discharge Activity: activity as tolerated Education Materials: Self-Care for Headaches, ED Chronic Pain Additional Instructions: Chepe un sandra con alfaro medico de cabecera en las proximas 24-48 horas. Regrese a la michele de emergencias si hay evidencia de que los signos o sintomas empeoran. Print Language: Hebrew Stand Alone Forms: Lisha Award Info., Patient Portal Info Letter PA/SEAL DELIVERY VEHICLE OFFICER Supervising Physician PA/SEAL DELIVERY VEHICLE OFFICER Supervising Physician: deanna
== END 2025-09-09 17:28 | disposition home or self-care (01) ==
PROVIDERS: Emergency Provider Emergency Medicine
DX: R51.9 Headache, unspecified (principal); H66.92 Otitis media, unspecified, left ear; Z79.01 Long term (current) use of anticoagulants; Z91.148 Patient's other noncompliance with medication regimen for other reason
CPT/HCPCS: 99283; A9270